=== PATIENT | male | born 1945 | race Caucasian/White ===

== ENCOUNTER 2021-05-02 00:53 | Emergency (ER) | payer MEDICARE, BC ==
[~2021-05-02] VITALS: Ht 177.8 cm; Wt 97.5 kg
[~2021-05-02 00:53] MED LIST: ASPIR 8181 MG PO; ASPIR-LOW81 MG; AZELAST NASAL137 MCG; AZELAST NASAL137 MCG NASAL; CARVEDILOL25 MG PO; CENTRUM ULTRA1 EAC1 PO; FENOFIBRATE160 MG PO; FINASTERIDE5 MG PO; FISH OIL OMEGA1 EAC1 PO; GLIPIZIDE ER2.5 MG PO; GLUCOPHAGE1000 MG; JANUVIA25 MG; METAMUCIL PAC1 UDPKT PO; METFORMIN HCL500 MG PO; MULTIVITAMINS1 EAC7; NAPROSYN500 MG PO; NAPROXEN500 MG; NEURONTIN 300300 M1; RAMIPRIL10 MG PO; RAPAFLO8 MG PO; TRIAMTERENE-HC1 EAC1 PO; TRIAMTERENE-HC1 EAC2 PO; VOLTAREN GEL 1100 G2 TOP
[2021-05-02] MEDS ORDERED: TRAMADOL 50 MG50 MG PO (01:07)
[2021-05-02] MEDS ORDERED: FLOMAX0.4 MG PO (01:07)
[2021-05-02 02:13] VITALS: BP 150/98
== END 2021-05-02 02:15 | disposition home or self-care (01) ==
LOC: M.ERS 00:53
DX: N50.1 Vascular disorders of male genital organs (principal); I10 Essential (primary) hypertension; E11.9 Type 2 diabetes mellitus without complications; E78.00 Pure hypercholesterolemia, unspecified; Z98.890 Other specified postprocedural states; Z87.442 Personal history of urinary calculi; Z79.899 Other long term (current) drug therapy; Z79.82 Long term (current) use of aspirin; Z88.8 Allergy status to other drugs, medicaments and biological substances